=== PATIENT | male | born 1945 ===

== ENCOUNTER → 2017-12-30 | Day surgery (SDC) | payer OTHER ==
[~2017-12-30] MED LIST: BACITRACIN IRRIGATION/NS 50,000 UNITS/1,000 ML BTL IRR ONE; BUPIVACAINE 0.5% 30 ML SDV ONE; DIAZEPAM 5 MG TAB PO ONE; LIDO/EPI 1% **for epidural** 30 ML SDV ONE; LIDOCAINE 1% 300 MG/30 ML SDV ONE; MIDAZOLAM 2 MG/2 ML VIAL ONE; NS 1,000 ML IV ONE; ceFAZolin 2 GM/DEXTROSE 100 ML IV ONE; diphenhydrAMINE 25 MG CAP PO ONE; fentaNYL 100 MCG/2 ML INJ ONE
--- NOTE | 2017-12-30 11:14 | CPEKG ---
Heart Rate: 68 RR Interval: 882 P-R Interval: 160 QRSD Interval: 126 QT Interval: 452 QTC Interval: 481 P [place]: 36 QRS [place]: -3 T Wave [place]: 171 EKG Severity - ABNORMAL ECG - EKG Impression: ATRIAL-SENSED VENTRICULAR-PACED RHYTHM Electronically Signed By: Leo Miles 01-Jan-2018 08:26:58
[2017-12-30 11:27] LABS: PLATELET COUNT 213 10^3/uL (150-400)
[2017-12-30 11:36] LABS: INR 1.01 (0.83-1.16); PROTIME(PATIENT) 13.5 SEC (12.0-15.0)
--- NOTE | 2017-12-30 13:47 | PDHPUP ---
History & Physical Update H&P update statement: This history and physical update is based on an assessment of the patient which was completed after admission or registration (within 24 hours), but prior to the surgery/procedure. H&P update: H&P reviewed & patient examined, no change in patient's condition since H&P completed
--- NOTE | 2017-12-30 13:47 | PDPROPOC ---
Sedation Plan of Care Sedation Plan of Care: vital signs stable, mental status noted, patient educated of risks, benefits, alternatives, patient can tolerate sedation ASA Classification: ASA 2 Planned drugs: fentanyl, midazolam Mallampati Score: Class 1 Mallampati Reference Image:
--- NOTE | 2017-12-30 15:36 | SUROPNOTE ---
[facility] Operative Report - Surgery Procedure: (1) ICD gen change Indication: (1) ICD at JOHNNIE Procedure Details: After consent was obtained, the patient was placed on the cath table in the usual sterile fashion. Fluoroscopic review of the lead location and ICD generator was performed. Lidocaine was used for local anesthetic to the left subclavian region. A #12 blade was used for the initial incision, and Bovie was used for depth and breath. The old generator was exposed and explanted ( [employer] Lumax 540 HF-T Serial No: [id number]). The leads were subsequently attached to the new generator ([employer] Iperia 7 HF -T DF-1 ProMR serial No: [id number]). RV parameters: R wave 8.6 with 0.5 ms 0.5 V and 896 Ohms CX lead with R wave of 6.7 and 0.5 ms 2.0 V and 560 Ohms RA lead with P wave of 3.2 and 0.5 ms 0.3 V and 402 Ohms No pocket revision was needed. New generator was sewn into position Pocket was closed with 4-0, 3-0, and 2-0 No complications were appreciated
--- NOTE | 2017-12-30 15:47 | ECHO ---
[email or web address] [address] [address] Main: [phone] Fax: Transthoracic Echocardiogram Name: RONNY HAYDEN MR#: [id number] Study Date: 12/30/2017 Study Time: 12:36 PM Date of : 1945 Age: 72 year(s) Height: 177.8 cm (70 in.) Weight: 88.45 kg (195 lb.) BSA: 2.06 m2 Gender: Male Examination: Echo Indication: Pre Pacemaker Change Image Quality: Contrast: Requested by: Leo Lorenzo BP: 146 mmHg/77 mmHg Heart Rate: Rhythm: Indication: Pre Pacemaker Change Procedure Staff Legal Aid: Zi Lopez RDCS Reading Physician: Damir Cuevas MD Requesting Provider: Conclusions: No pericardial effusion. Reduced LV systolic function with anterior apical akinesis ejection fraction of 20-25%. Moderate aortic regurgitation. Right ventricular systolic pressure is 45 mm of mercury tissue Doppler suggests elevated filling pressures. Measurements: Chambers Valvular Assessment AV/MV Valvular Assessment TV/PV Normal Normal Normal Name Value Range Name Value Range Name Value Range Ao Saray (MM): 3.7 cm (2.2 cm-3.7 AV Vmax: 1.40 m/s (1 m/s-1.7 TR Vmax: 3.16 mm/s ( - ) cm) m/s) TR PGmax: 40 mmHg ( - ) IVSd (2D): 0.6 cm (0.6 cm-1.1 AV maxP mmHg ( - ) syst. PAP: 45 mmHg ( - ) cm) LVOT Vmax: 0.81 m/s (0.7 m/s-1.1 PV Vmax: 0.88 m/s (0.6 m/s-0.9 LVDd (2D): 5.8 cm (4.2 cm-5.9 m/s) m/s) cm) ZEINA (Vmax): 2.0 cm2 ( - ) PV PGmax: 3 mmHg ( - ) LVDs (2D): 5.1 cm (2.1 cm-4 MV E Vmax: 0.60 m/s ( - ) cm) MV A Vmax: 0.87 m/s ( - ) LVPWd (2D): 0.8 cm (0.6 cm-1 MV E/A: 0.69 ( - ) cm) LVOTd 2.1 cm 2.1 cm mm LVEF (BP): 31 % (>=55 %) EF Range: 20-25 % Continued Measurements: Chambers Valvular Assessment AV/MV Valvular Assessment TV/PV Name Value Name Value Name Value LADs Lon.8 cm MV E' Septal: 0.03 m/s CVP (est.): 5 mmHg LA Area: 17.7 cm2 MV E/E' Septal: 22.70 LA Volume: 41 ml MV E/E' Lateral: 34.10 LA Volume Index: 19.9 ml/m2 AR PISA radius: 0.7 cm Patient: RONNY HAYDNE Study Date: 12/30/2017 Page 1 of 2 12:36 PM AR VTI: 206.0 cm Findings: Left Ventricle: Normal size left ventricle. The ejection fraction is estimated to be 20-25 %. The left venticular ejection fraction is estimated at 20-25% There is basilar to mid anteroseptal hypokinesis. There is apical hypokinesis.. Right Ventricle: Normal size right ventricle. Normal RV function. Left Atrium: The left atrium is normal in size. Right Atrium: The right atrium is normal in size. Mitral Valve: The mitral valve is normal in appearance and function. Aortic Valve: The aortic valve is tri-leaflet. Moderate aortic valve regurgitation is present. Tricuspid Valve: Mild tricuspid regurgitation is present. The pulmonary artery pressure is mildly increased. Pulmonic Valve: The pulmonic valve is normal in appearance and function. Aorta: The aorta is normal. Pericardium: No pericardial effusion. (No Signature Object) Patient: RONNY HAYDEN Study Date: 12/30/2017 Page 2 of 2 12:36 PM [id number]
== END | disposition home or self-care (01) ==
LOC: FCATH 10:50 → UNDOADMOB 15:57 → F2W 15:57
PROVIDERS: ATTEND Internal Medicine Cardiovascular Disease
PROC: 0JPT0PZ Removal of Cardiac Rhythm Related Device from Trunk Subcutaneous Tissue and Fascia, Open Approach (ICD-10-PCS; principal; 2017-12-30)
PROC: 0JH608Z Insertion of Defibrillator Generator into Chest Subcutaneous Tissue and Fascia, Open Approach (ICD-10-PCS; principal; 2017-12-30)
DX: Z45.02 Encounter for adjustment and management of automatic implantable cardiac defibrillator (principal); I42.9 Cardiomyopathy, unspecified; I25.10 Atherosclerotic heart disease of native coronary artery without angina pectoris; E78.5 Hyperlipidemia, unspecified; I10 Essential (primary) hypertension; I25.5 Ischemic cardiomyopathy; I25.2 Old myocardial infarction; Z79.82 Long term (current) use of aspirin; Z95.810 Presence of automatic (implantable) cardiac defibrillator; Z95.5 Presence of coronary angioplasty implant and graft; Z86.73 Personal history of transient ischemic attack (TIA), and cerebral infarction without residual deficits
CPT/HCPCS: C1882; J0690; J2250; J3010

== ENCOUNTER 2018-04-02 08:51 | Observation (INO) | payer OTHER ==
[2018-04-02] MEDS ORDERED: NS 1,000 ML IV ONE (08:55)
[2018-04-02] MEDS ORDERED: diphenhydrAMINE 25 MG CAP PO ONE (08:55)
[2018-04-02] MEDS ORDERED: ASPIRIN EC 325 MG TAB PO ONE (08:55)
[2018-04-02] MEDS ORDERED: FAMOTIDINE 20 MG TAB PO ONE (08:55)
[2018-04-02] MEDS ORDERED: DIAZEPAM 5 MG TAB PO ONE (08:55)
[2018-04-02 09:32] LABS: PLATELET COUNT 209 10^3/uL (150-400)
[2018-04-02 09:42] LABS: INR 1.03 (0.83-1.16); PROTIME(PATIENT) 13.7 SEC (12.0-15.0)
[2018-04-02] MEDS ORDERED: HEPARIN 10,000 UNIT/10 ML MDV (1,000 UNIT/ML) ONE (11:08)
[2018-04-02] MEDS ORDERED: MIDAZOLAM 2 MG/2 ML VIAL ONE (11:08)
[2018-04-02] MEDS ORDERED: fentaNYL 100 MCG/2 ML INJ ONE (11:08)
[2018-04-02] MEDS ORDERED: IOPAMIDOL (ISOVUE-370) 150 ML BTL IV ONE ×2 (11:08→12:32)
[2018-04-02] MEDS ORDERED: LIDOCAINE 1% 300 MG/30 ML SDV ONE (11:08)
[2018-04-02] MEDS ORDERED: VERAPAMIL 5 MG/2 ML VIAL ONE (11:08)
--- NOTE | 2018-04-02 11:18 | PDPROPOC ---
Sedation Plan of Care Sedation Plan of Care: vital signs stable, mental status noted, patient educated of risks, benefits, alternatives, patient can tolerate sedation ASA Classification: ASA 3 Planned drugs: fentanyl, midazolam Mallampati Score: Class 3 Mallampati Reference Image: Patient passed 3-3-2 rule?: Yes
[2018-04-02] MEDS ORDERED: BIVALIRUDIN 250 MG/5 ML VIAL IV ONE (12:14)
[2018-04-02] MEDS ORDERED: NITROGLYCERIN 1,500 MCG/15 ML VIAL MISC ONE (12:25)
[2018-04-02] MEDS ORDERED: EPINEPHrine 1 MG/10 ML SYR IVP ONE (12:25)
[2018-04-02] MEDS ORDERED: CLOPIDOGREL BISULFATE 75 MG TAB ONE (13:06)
[2018-04-02] MEDS ORDERED: ONDANSETRON 4 MG/2 ML VIAL IVP PRN (13:21)
[2018-04-02] MEDS ORDERED: ATROPINE SULFATE 1 MG/10 ML SYR IVP PRN (13:21)
[2018-04-02] MEDS ORDERED: CLOPIDOGREL BISULFATE 75 MG TAB PO ONE (13:21)
[2018-04-02] MEDS ORDERED: NITROGLYCERIN 0.4 MG BTL SL PRN (13:21)
[2018-04-02] MEDS ORDERED: HYDROCODONE/APAP 5/325 TAB PO PRN (13:21)
[2018-04-02] MEDS ORDERED: LORazepam 2 MG/ML INJ IVP PRN (13:21)
[2018-04-02] MEDS ORDERED: TEMAZEPAM 15 MG CAP PO PRN (13:21)
[2018-04-02] MEDS ORDERED: OXYCODONE/APAP 5/325 TAB PO PRN (13:21)
[2018-04-02] MEDS ORDERED: NS 1,000 ML IV SCH (13:30)
--- NOTE | 2018-04-02 15:43 | CPEKG ---
Test Reason : OPEN Blood Pressure : / mmHG Vent. Rate : 074 BPM Atrial Rate : 074 BPM P-R Int : 162 ms QRS Dur : 130 ms QT Int : 448 ms P-R-T Axes : 019 -61 127 degrees QTc Int : 497 ms Atrial-ventricular dual-paced rhythm Confirmed by Geoff Ordonez ([id number]) on 04/02/2018 3:42:41 PM Referred By: Confirmed By:Geoff Ordonez
[2018-04-02] MEDS: CARVEDILOL 6.25 MG TAB PO SCH (17:00)
[2018-04-03 03:51] LABS: PLATELET COUNT 181 10^3/uL (150-400)
--- NOTE | 2018-04-03 07:17 | CPIP ---
DATE OF PROCEDURE: 04/02/2018 PROCEDURE PERFORMED: 1. Selective coronary angiography. 2. Left heart catheterization. 3. Left ventriculogram. 4. Percutaneous transluminal coronary angioplasty and stent placement of the proximal circumflex wit h the use of a 4 x 16 Synergy drug-eluting stent. 5. Percutaneous transluminal coronary angioplasty and stent placement of the 2nd and major obtuse ma rginal with the use of 3.0 x 24 Synergy drug-eluting stent. 6. AngioSeal arteriotomy repair right femoral artery approach. COMPLICATIONS: None. IMMUNOPATHOLOGIST: Mulugeta Gambino MD INDICATION FOR PROCEDURE/APPROPRIATE USE CRITERIA: The patient has [place] [employer] class 4 symptoms of shortness of breath waking him from sleep (which, if an anginal equivalent, would be a CCS class 4 symptom of angina) along with a high-risk stress test with multi zone perfusion deficits involving the majority of the distal anterior wall and apex, distal inferior wall, distal inferolater al wall, and distal inferoseptal wall. PROCEDURE IN DETAIL: After informed consent was obtained, n.p.o. status was confirmed. The region o f the right groin was cleaned, prepped, and draped in sterile fashion. Approximately 10 cc of 1% lid ocaine was utilized for local anesthesia. A 6-Arabic sheath was placed in the right common femoral a rtery vessel and confirmed by angiography. The patient then underwent the previously-ment ioned diagnostic procedure with the use of JL4 and R4 curved coronary catheters, as well as a 6-Frenc h pigtail catheter. Standard wire exchange technique was utilized for all catheter exchanges. The right coronary artery is small and nondominant, approximately 1.5 to 1.75 mm in size with dampeni ng of the 6-Arabic catheter with placement of the catheter within the right coronary. The left main coronary artery lumen is approximately 8 mm in size and trifurcates into an LAD, ramus, and circumfle x system. The LAD arises in its usual location. It has been previously stented with bifurcation [place] nts involving the LAD and diagonal bifurcation. There is at least a 50% to 60% stenosis of the major diagonal branch at the level of the bifurcation stents. There is evidence of in-stent restenoses wi thin the LAD as well, which is estimated angiographically to be at least 30%. There is JORGE-3 flow t o the distal vessel involving the LAD and diagonal vessels. The ramus vessel is free of significant flow-limiting disease. The circumflex vessel is large and dominant, approximately 4.25 mm in size pr oximally at the ostium. It gives rise to an early small obtuse marginal branch. The circumflex has also been previously stented and is widely patent within the stented segment. Within the obtuse ba inal #2, there is a high-grade 80% stenosis of the circumflex obtuse marginal. Thereafter, the circu mflex continues in the posterior AV groove and gives rise to the posterior descending artery, making this the dominant vessel. There is JORGE-3 flow within the circumflex/obtuse marginal system. We turned our attention to the lesion in question. A 6-Arabic Extra Backup catheter was used for cat heter support. A 0.014 Intuition wire was advanced across the lesion in question and placed initiall y in the PDA to try to balloon open the 90% stenosis of the proximal circumflex. The wire was then r edirected into the OM2 when caudal views demonstrated clearly that there was evidence of obstruction of that vessel. Attempts to pass a 3.0 x 24 Synergy stent into the distal segment were unsuccessful secondary to the proximal lesion. This was then ballooned with a 4 x 12 Emerge balloon with subseque nt improvement in stenosis from 90% to approximately 20% to 30%. At that point, the distal lesion wa s then primarily stented with the use of 3.0 x 24 Synergy stent at a maximum pressure of 16 atmospher es with excellent angiographic results and improvement from an 80% stenosis to 0% stenosis with JORGE- 3 flow pre and post stent implantation and without evidence of edge dissection thrombosis. The patie nt was documented to have an adequate INR at the time of the procedure. The proximal lesion within the circumflex proper was then stented with a 4.0 x 12 Synergy drug-elutin g stent deployed at a maximal pressure of 16-18 atmospheres. Post stent implantation there was at le ast 10% to 15% residual stenosis within the stented segment. Therefore, a 4.5 x 12 noncompliant Fanny ge balloon was then deployed in this area and the stent was post dilated to a maximum pressure of 18 atmospheres with 5% residual stenosis status post PTCA and stent placement with a 5% residual stenosi s status post PTCA and stent placement and post stent dilatation. The patient then underwent left ventriculogram and left heart catheterization. Left heart catheteriz ation identified an elevated left ventricular end-diastolic pressure of 19 mmHg. The patient underwent left ventriculogram in the FELIPE projection, demonstrating a dilated left ventric ular cavity with decreased and globally depressed left ventricular systolic function with mid and dis skylar anterior wall and apical hypokinesis. The basal inferior wall appeared to contract relatively no rmally and did appear to be the strongest segment in FELIPE projection left ventriculography. Because of the tortuosity involving the distal iliac vessels, the patient did undergo an abdominal ao rtogram with bilateral iliac runoff. There was a pressure rise mid injection with the catheter in th e suprarenal position. This documented a high-grade stenosis of the inferior mesenteric artery. The re was no evidence of connie aneurysm within the aorta. Diffuse plaque in the infrainguinal segments was noted. There was an 80% stenosis of the common iliac on the left side with widely patent right c ommon and right external iliacs to the level of the previously-placed sheath. SUMMARY OF FINDINGS: 1. Successful balloon angioplasty and stent implantation of the left circumflex obtuse marginal as p reviously described with the use of Synergy drug-eluting stents in 2 separate locations. The patient would benefit from dual antiplatelet therapy with aspirin and Plavix to complete at least 1 year of therapy. 2. Severely depressed left ventricular systolic function with ejection fraction estimated at 25% wit h anterior wall and apical hypokinesis as well as distal inferior wall hypokinesis. These findings a re consistent with an ischemic cardiomyopathy. 3. Peripheral vascular disease involving the inferior mesenteric artery as well as the left common i liac artery, which is of unclear clinical significance. If the patient has left-sided claudication, he may be a candidate for a left common iliac stent, especially if a gradient was noted or evaluated with more dedicated angiography of this region. /[id number]/MODL
[2018-04-03 08:09] VITALS: BP 135/87
[2018-04-03] MEDS: CARVEDILOL 6.25 MG TAB PO SCH (08:38)
[2018-04-03] MEDS ORDERED: ASCORBIC ACID 500 MG TAB PO SCH (09:00)
[2018-04-03] MEDS ORDERED: Herbals/Supplements -Info Only PO SCH (09:00)
[2018-04-03] MEDS ORDERED: LEVOTHYROXINE 25 MCG TAB PO SCH (09:00)
[2018-04-03] MEDS ORDERED: CALCIUM CARBONATE 500 MG CHEWABLE TAB PO SCH (09:00)
[2018-04-03] MEDS ORDERED: ATORVASTATIN CALCIUM 40 MG TAB PO SCH (09:00)
[2018-04-03] MEDS ORDERED: ALLOPURINOL 300 MG TAB PO SCH (09:00)
[2018-04-03] MEDS ORDERED: ASPIRIN EC 325 MG TAB PO SCH (09:00)
[2018-04-03] MEDS ORDERED: CLOPIDOGREL BISULFATE 75 MG TAB PO SCH ×2 (09:00)
[2018-04-03] MEDS ORDERED: LISINOPRIL 5 MG TAB PO SCH (09:00)
--- NOTE | 2018-04-03 10:13 | ASMTLACE ---
[facility] Length of stay for Answers: 2 days current admission Acuity / Level of Answers: No Care: Did the patient have an inpatient admission? Comorbidities - select Answers: Coronary Artery Disease all that apply # of Emergency department Answers: 0 visits in the last 6 months Score: 4 Date Signed: 04/03/2018 10:13 AM Electronically Signed By:Luna Vital RN
--- NOTE | 2018-04-03 12:53 | GDS ---
DISCHARGE DIAGNOSES: 1. Abnormal myocardial perfusion imaging test with a large-sized, severe intensity, partially revers ible defect involving the mid to distal anterior, inferior, and septal garza. 2. Worsening ischemic cardiomyopathy with systolic congestive heart failure with an ejection fractio n documented of 25% on recent echocardiogram. 3. Severely occlusive disease involving the proximal left circumflex and obtuse marginal 2 with 80% blockages or greater, status post percutaneous transluminal coronary angioplasty and stenting on this admission. 4. Peripheral vascular disease with high-grade mesenteric artery stenosis and 80% left common iliac stenosis identified in this cardiac catheterization. PROCEDURES: 04/02/2018: Left heart catheterization with a left main without significant disease, wh ich then trifurcated into the LAD, ramus and circumflex systems. The LAD has been previously stented . There was a 50% to 60% stenosis in a major diagonal branch. There is 30% in-stent restenosis in t he LAD stent. JORGE-3 flow through the vessels. Ramus without any significant disease. Circumflex h ad proximal disease. The OM2 had a high-grade stenosis. This was the dominant vessel. This was dafne ated with percutaneous intervention. BRIEF HISTORY: Please see dictated H and P by Dr. Lorenzo for complete details. In brief, the patien t is a 72-year-old male with a history of CAD with MS and PCI in 2003 to the LAD, ischemic cardiomyop athy, status post ICD, worsening ejection fraction with the last echo showing an ejection fraction of 20% to 25%, depression, hypertension, dyslipidemia, PVD with known vertebral artery occlusion, who h ad recent stress testing that showed a larger territory of ischemia. Given the worsening ejection fr action and increasing shortness of breath, cardiac catheterization was undertaken. HOSPITAL COURSE BY PROBLEM: 1. Abnormal MPI, status post PTCA and stenting to the proximal left circumflex and obtuse marginal 2 . We reviewed the importance of dual anti-platelet therapy, which he has already been taking. Possi bilities include increasing his atorvastatin for secondary prevention, but we will defer this to his outpatient veneer patcher. 2. Ischemic cardiomyopathy with a systolic ejection fraction of 25%. We reviewed considering estee rader a repeat echo in 40 days. If his EF does not improve, he may be a candidate for upgrade to BiV pac emaker with his ICD. Overall, he is euvolemic, and so no Lasix has been started at this time. We re viewed blood pressure goals, and he may warrant up titration of blood pressure agents in the near fut ure. 3. PVD. He denies any symptoms of claudication. He is already on aspirin and statin therapy. PHYSICAL EXAM: VITAL SIGNS: On day of discharge, blood pressure 135/87, heart rate of 90, respirati ons 18, O2 saturation 91% on room air, temp of 98.7 degrees Fahrenheit. GENERAL: He is a very pleas ant male in no apparent distress. HEENT: Head is normocephalic, atraumatic. Eyes are without scler al icterus. HEART: Regular rate and rhythm. LUNGS: Clear. SKIN: Right groin site without ecchym osis. EXTREMITIES: He has 1+ PT and DP pulses bilaterally. LABORATORY DATA: CBC with WBC 4.51, hemoglobin 13.5, hematocrit 40.6, platelet count of 181. BMP: Sodium 139, potassium 4.9, chloride 107, CO2 24, BUN 19, creatinine 1.3. Glucose is 82, triglyceride s 219, total cholesterol 161, LDL of 74, HDL of 43. RESULTS PENDING: None. DIET: Cardiac diet recommended. ACTIVITY: Groin precautions reviewed. He also may enroll in cardiac rehab in the near future. DISCHARGE MEDICATIONS: Please see med reconciliation for complete details. He will be continued on all his home medications without change. These include vitamin B complex, niacin, multivitamin, tad nopril, levothyroxine, Plavix, carvedilol, calcium carbonate, atorvastatin, aspirin, vitamin C, allop urinol. DISCHARGE INSTRUCTIONS: Groin precautions. FOLLOWUP: With Dr. Lorenzo in 1 week's time as scheduled. /[id number]/MODL
--- NOTE | 2018-04-04 11:13 | CPEKG ---
Test Reason : OPEN Blood Pressure : / mmHG Vent. Rate : 072 BPM Atrial Rate : 072 BPM P-R Int : 170 ms QRS Dur : 139 ms QT Int : 490 ms P-R-T Axes : 035 -72 098 degrees QTc Int : 537 ms Atrial-ventricular dual-paced rhythm Confirmed by Bella Becerril ([id number]) on 04/04/2018 11:13:34 AM Referred By: Confirmed By:Bella Becerril
--- NOTE | 2018-04-04 11:21 | CPEKG ---
Test Reason : OPEN Blood Pressure : / mmHG Vent. Rate : 097 BPM Atrial Rate : 097 BPM P-R Int : 133 ms QRS Dur : 142 ms QT Int : 411 ms P-R-T Axes : 053 -67 091 degrees QTc Int : 522 ms Atrial-sensed ventricular-paced complexes When compared with ECG of 04/02/2018 A pacing now present Confirmed by Bella Becerril ([id number]) on 04/04/2018 11:21:11 AM Referred By: Confirmed By:Bella Becerril
== END 2018-04-03 10:50 | disposition home or self-care (01) ==
LOC: FCATH 08:51 → F2W 13:21
PROVIDERS: ADMIT Internal Medicine Cardiovascular Disease; ATTEND Internal Medicine Cardiovascular Disease
PROC: 4A023N7 Measurement of Cardiac Sampling and Pressure, Left Heart, Percutaneous Approach (ICD-10-PCS; principal; 2018-04-02)
PROC: 027035Z Dilation of Coronary Artery, One Artery with Two Drug-eluting Intraluminal Devices, Percutaneous Approach (ICD-10-PCS; principal; 2018-04-02)
DX: I25.10 Atherosclerotic heart disease of native coronary artery without angina pectoris (principal); T82.855A Stenosis of coronary artery stent, initial encounter; I25.5 Ischemic cardiomyopathy; I50.20 Unspecified systolic (congestive) heart failure; I73.9 Peripheral vascular disease, unspecified; F32.9 Major depressive disorder, single episode, unspecified; I11.0 Hypertensive heart disease with heart failure; E78.5 Hyperlipidemia, unspecified; Z95.810 Presence of automatic (implantable) cardiac defibrillator
CPT/HCPCS: 92928; 92929; 93005; 93458; C1725; C1769; C1887; G0378; C1760; C1874; C9600; C9601; J0583; J1644; J2250; J3010; Q9967